=== PATIENT | male | born 1990 | race Caucasian/White ===

== ENCOUNTER 2019-10-08 12:25 | Inpatient (IN) ==
[2019-10-08] MEDS ORDERED: IOPAMIDOL 100 ML BOTTLE IV ONE (12:26)
[2019-10-08] MEDS ORDERED: ONDANSETRON 4 MG/2 ML VIAL IV ONE (12:39)
[2019-10-08] MEDS ORDERED: LACTATED RINGERS 1,000 ML IV SCH (13:00)
[2019-10-08] MEDS ORDERED: LACTATED RINGERS 1,000 ML IV ONE (13:01)
[2019-10-08] MEDS: HYDROmorphone 0.5 MG/0.5 ML SYRINGE IV PRN ×7 (13:02→23:30)
[2019-10-08] MEDS ORDERED: ACETAMINOPHEN 650 MG/65 ML BOTTLE IV ONE (13:04)
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
--- NOTE | 2019-10-08 13:15 | XRay Report ---
INDICATION: abd pain TECHNIQUE: Supine and upright abdomen. COMPARISON: None FINDINGS:Bowel gas pattern is unremarkable. No dilated gas-filled small bowel. No evidence for mechanical small bowel obstruction. There is no pneumoperitoneum. No biliary or portal venous gas. No pneumatosis. No focal abnormality IMPRESSION: Negative Interpreted and Authenticated by: Isaak Chen 10/08/19
[2019-10-08 13:50] LABS: Basophils # (Auto) 0.07 K/mcL (0.00-0.30); Basophils % (Auto) 0.4 % (0.0-2.0); Eosinophils # (Auto) 0 K/mcL (0.00-0.70); Eosinophils % (Auto) 0 % (0.0-7.0); Granulocytes % (Auto) 77.9 % (38.0-78.0); Hematocrit 44.9 % (40.1-51.0); Hemoglobin 15.6 g/dL (13.7-17.5); Lymphocytes # (Auto) 2.26 K/mcL (1.50-4.80); Lymphocytes % (Auto) 13.5 % (15.5-49.0); Mean Cell Volume 91.8 fL (80.0-100.0); Mean Corpuscular HGB Conc 34.7 g/dL (31.0-36.0); Mean Platelet Volume 10.2 fL (7.4-10.4); Monocytes # (Auto) 1.38 K/mcL (0.10-0.90); Monocytes % (Auto) 8.2 % (1.0-12.0); Platelet Count 340 K/mcL (140-440); RBC 4.89 M/mcL (4.63-6.08); Red Cell Distribution Width 12.4 % (11.5-14.5); WBC 16.8 K/mcL (4.50-11.00)
[2019-10-08 14:22] LABS: ALT/SGPT 58 U/l (0-40); AST/SGOT 60 U/l (0-37); Albumin/Globulin Ratio 1.5 (1.0-2.3); Alkaline Phosphatase 89 U/L (39-117); Bilirubin,Total 0.4 mg/dL (0.0-1.0); Blood Urea Nitrogen 12 mg/dl (6-20); Calcium 10.8 mg/dl (8.6-10.4); Carbon Dioxide 24 mmol/L (22-30); Chloride 96 mmol/L (96-108); Globulin 3.3 gm/dL (2.2-3.7); Glomerular Filtration Rate 103; Glucose 124 mg/dL (70-105)
[2019-10-08] MEDS ORDERED: KETOROLAC 30 MG/ML VIAL IV ONE (14:49)
--- NOTE | 2019-10-08 15:07 | Cat Scan Report ---
INDICATION: abd pain COMPARISON: Plain film examination dated 10/08/2019 TECHNIQUE: Axial images were obtained through the abdomen and pelvis. Sagittally and coronally reformatted images. 80 mL Isovue 370 injected intravenously. Oral contrast material was not administered FINDINGS: Lung bases:Negative. No pulmonary parenchymal nodule. No pleural fluid or pericardial fluid Liver:Low density liver consistent with hepatic steatosis. There is no hepatic mass. Liver contour is smooth. Gallbladder, bilary:No calcified gallstones. No gallbladder wall thickening. No dilated intra or extrahepatic bile ducts. Spleen:No splenomegaly. Normal enhancement of splenic and portal veins. Pancreas:Acute interstitial edematous pancreatitis. The pancreas is enlarged with peripancreatic inflammatory change. There is minimal retroperitoneal and free intraperitoneal fluid in the pelvis. There is no pseudocyst. No pancreatic necrosis or abscess. Adrenal glands:Negative Kidneys, ureters, bladder:No solid or cystic renal mass. No hydronephrosis. No obstructing calculi. There is no hydroureter. No ureteral stone No bladder calculi or detectable mass Gastrointestinal:No detectable colonic mass. There is no diverticulitis. Small bowel is negative. No mechanical small bowel obstruction. Stomach and duodenum are unremarkable Appendix: The appendix is negative Vascular:Negative abdominal aorta. Superior mesenteric artery and celiac trunk are normal. Normal opacification of the inferior mesenteric artery Lymphatic:No retroperitoneal or mesenteric adenopathy Mesentery, peritoneum: No free intraperitoneal fluid. No mesenteric or retroperitoneal mass. Reproductive:Prostate is not significantly enlarged Musculoskeletal:No lumbar compression fractures. Sacrum and pelvis are negative. No hip fracture. IMPRESSION: 1. Acute interstitial edematous pancreatitis. No pancreatic necrosis or abscess 2. Peripancreatic inflammatory change. No pseudocyst. There is a small amount of free fluid in the pelvic cul-de-sac 3. Hepatic steatosis The exam was performed using radiation dose optimization techniques including, but not limited to, automated exposure control, adjustment of the mA and/or kV according to patient size and use of iterative reconstruction technique. Interpreted and Authenticated by: Isaak Chen 10/08/19
[2019-10-08 15:29] LABS: Appearance,Urine CLEAR; Bacteria,Urine 0 /hpf (0); Bilirubin,Urine NEG (NEG); Color,Urine YELLOW; Culture Indicated,Urine YES; Glucose,Urine (UA) NEGATIVE (NEG); Ketones,Urine 20 mg/dL (NEG); Leukocyte Esterase,Urine 25 /uL (NEG); Mucus,Urine MANY /hpf (0); Nitrate,Urine NEG (NEG); Protein,Urine 100 mg/dL (NEG); Specific Gravity,Urine 1.034 (1.000-1.035); Urine Blood NEG mg/dL (<0.03); Urine Hyaline Cast 3 /lpf (0-2); Urine RBC 1 /hpf (0-1); Urine Squamous Epithelial Cell < 1 /hpf (0-4); Urine WBC 17 /hpf (0-4); Urobilinogen,Urine NEG (NEG)
[2019-10-08] MEDS ORDERED: 0.9 % SODIUM CHLORIDE 1,000 ML IV SCH ×2 (16:00→18:00)
[2019-10-08] MEDS ORDERED: 0.9 % SODIUM CHLORIDE 1,000 ML IV ONE ×2 (16:33→16:35)
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
[2019-10-08] MEDS ORDERED: BISACODYL 10 MG SUPP.RECT PR PRN (17:49)
[2019-10-08] MEDS ORDERED: POLYETHYLENE GLYCOL 3350 17 GM PACKET PO PRN (17:49)
[2019-10-08] MEDS ORDERED: ONDANSETRON 4 MG ODT TABLET SL PRN (17:49)
[2019-10-08] MEDS ORDERED: hydrALAZINE 20 MG/ML VIAL IV PRN (17:49)
[2019-10-08] MEDS ORDERED: POTASSIUM CHLORIDE 40 MEQ in DEXTROSE 5% IN WATER 500 ML IV PRN (17:49)
[2019-10-08] MEDS ORDERED: ACETAMINOPHEN 325 MG TABLET PO PRN (17:49)
[2019-10-08] MEDS ORDERED: MELATONIN 3 MG TABLET PO PRN (17:49)
[2019-10-08] MEDS ORDERED: MAGNESIUM SULFATE 2 GM/50 ML BAG IV PRN (17:49)
[2019-10-08] MEDS: 0.9 % SODIUM CHLORIDE 1,000 ML IV SCH ×2 (18:29→19:40)
[2019-10-08] MEDS: ONDANSETRON 4 MG/2 ML VIAL IV PRN (19:41)
[2019-10-08] MEDS: DOCUSATE SODIUM 100 MG CAPSULE PO SCH (21:03)
[2019-10-08] MEDS: HEPARIN 5,000 UNIT/ML VIAL SQ SCH (21:03)
[2019-10-08] MEDS ORDERED: ACETAMINOPHEN 650 MG/65 ML BOTTLE IV PRN (22:10)
[2019-10-08] MEDS: 0.9 % SODIUM CHLORIDE 10 ML SYRINGE IV SCH (22:12)
[2019-10-09] MEDS: 0.9 % SODIUM CHLORIDE 1,000 ML IV SCH ×4 (00:44→20:27)
[2019-10-09] MEDS: HYDROmorphone 0.5 MG/0.5 ML SYRINGE IV PRN ×6 (00:49→07:46)
[2019-10-09] MEDS: 0.9 % SODIUM CHLORIDE 10 ML SYRINGE IV SCH ×4 (03:50→20:15)
[2019-10-09] MEDS ORDERED: ACETAMINOPHEN 1,000 MG/100 ML BOTTLE IV ONE (05:10)
[2019-10-09 06:25] LABS: Hemoglobin 12.6 g/dL (13.7-17.5); Mean Cell Volume 97.2 fL (80.0-100.0); Mean Corpuscular HGB Conc 33.2 g/dL (31.0-36.0); Mean Platelet Volume 10.2 fL (7.4-10.4); Platelet Count 214 K/mcL (140-440); RBC 3.91 M/mcL (4.63-6.08); WBC 11.5 K/mcL (4.50-11.00)
[2019-10-09 06:52] LABS: ALT/SGPT 31 U/l (0-40); AST/SGOT 39 U/l (0-37); Albumin 3.7 gm/dL (3.2-5.2); Albumin/Globulin Ratio 1.7 (1.0-2.3); Alkaline Phosphatase 59 U/L (39-117); Bilirubin,Direct < 0.2 mg/dL (0.0-0.3); Bilirubin,Total 0.4 mg/dL (0.0-1.0); Blood Urea Nitrogen 11 mg/dl (6-20); C-Reactive Protein 7.5 mg/dl (0.0-0.8); Calcium 7.8 mg/dl (8.6-10.4); Carbon Dioxide 22 mmol/L (22-30); Chloride 105 mmol/L (96-108); Globulin 2.2 gm/dL (2.2-3.7); Glomerular Filtration Rate 122; Glucose 86 mg/dL (70-105); Lactate Dehydrogenase 224 U/L (94-250); Triglycerides 130 mg/dl (<150); Uric Acid 6.3 mg/dL (2.5-8.0)
[2019-10-09 06:54] LABS: Phosphorous 2.3 mg/dL (2.7-4.5)
[2019-10-09 07:05] LABS: Band Neutrophils % 12 % (0-10); Eosinophils % (Manual) 2 % (0-7); Lymphocytes % 4 % (15-49); Monocytes % (Manual) 5 % (1-12); Platelet Estimate NORMAL (NORMAL); RBC Morphology NORMAL (NORMAL); Reactive Lymphocytes 3 % (0-2); Segmented Neutrophils % 74 % (38-78)
[2019-10-09] MEDS: THIAMINE 100 MG in 0.9 % SODIUM CHLORIDE 50 ML IV SCH (08:08)
[2019-10-09] MEDS: DOCUSATE SODIUM 100 MG CAPSULE PO SCH ×2 (08:17→20:15)
[2019-10-09] MEDS: HEPARIN 5,000 UNIT/ML VIAL SQ SCH ×2 (08:17→20:27)
[2019-10-09] MEDS: HYDROmorphone 1 MG/ML SYRINGE IV PRN ×7 (09:06→23:48)
[2019-10-09] MEDS: ONDANSETRON 4 MG/2 ML VIAL IV PRN (09:14)
--- NOTE | 2019-10-09 09:58 | Internal Med Progress Note ---
SUBJECTIVE Subjective Patient information: Note initiated : 10/09/19 at 9:55 am Service Date, if different from initiated Date: [] Patient: Andrea Cleaning a 29 y/o M admitted on 10/08/19 for Abdominal Pain . History of present illness: Mr. Cleaning is a 29 year old M who works at the [employer] without any significant past medical history presents to the ER with severe epigastric dull pain 8 out of 10-10 out of 10 that started this morning. Describes as continuous radiating to the back associated nausea and multiple episodes of vomiting. Denies associated fever. He had similar episodes in the last year at least twice for which he did not seek medical attention. He drinks usually beer but drank fifth of hard alcohol after work couple days ago. Initial work-up in the ER was consistent with acute severe pancreatitis with white count over 20,[address] evidence of hemorrhage necrosis or abscess. Patient was started on crystalloid/pain medications and antinausea medication. Hospital service was consulted. At the time of evaluation patient is fairly anxious and nervous pain 7 out of 10 despite opioids. He was able to answer most the question and endorse review of systems and history as above. He denies associated diarrhea, bloody stool 10/08-continue conservative management and requiring IV opioids. Pain 7 out of 10. Keeping n.p.o. On crystalloids. White count downtrending however febrile at 101.5. Continue serial CRP/lipase. Start enteral feed via Dobbhoff in 24 hours if downtrending inflammatory markers. Constitutional Vitals: Vital Signs Temp Pulse Resp BP Pulse Ox 98.9 F 90 16 131/80 93 10/09/19 07:00 10/09/19 07:00 10/09/19 07:00 10/09/19 07:00 10/09/19 07:00 Period Temp Pulse Resp BP Sys/Alexandra Pulse Ox Last 24 Hr 97.2 F-101.3 F 55-113 16-21 114-158/71-99 93-100 Intake and Output 10/08/19 10/09/19 10/09/19 21:59 05:59 13:59 Intake Total 3548 2065 Output Total 250 300 150 Balance 3298 1765 -150 Weight 85.82 kg Alert oriented Nonlabored breathing Anxious Tender abdomen Intake & Output: Intake & Output 07/10/09/19 10/09/19 21:59 05:59 13:59 Intake Total 3547 2064 Output Total 250 300 150 Balance 3298 1765 -150 Weight 85.82 kg Intake: IV 3547 2064 Sodium Chloride 0.9% 1,000 ml @ 2483 2000 200 mls/hr IV .Q5H [facility] Rx#: [id number] OFIRMEV 1,000 mg In 100 ml @ 0 65 mls/hr IV .STK-MED ONE Rx#: [id number] Lactated Ringers 1,000 ml @ 1000 Wide Open IV [facility] Rx#: [id number] Output: Void Amount 250 300 150 Other: Urine Appearance Clear Urine Color Dark Yellow Dark Yellow Dark Yellow Urine Odor Normal Normal OBJ DATA Labs CBC & Chem 7: 10/09/19 05:20 10/09/19 05:20 Labs: Abnormal Lab Results 10/09/19 10/09/19 10/08/19 05:20 05:20 14:16 WBC 11.5 H RBC 3.91 L Hgb 12.6 L Hct 38.0 L Lymph % (Auto) Gran # [place] # (Auto) Band Neutrophils % 12 H Lymphocytes % 4 L Reactive Lymphocytes 3 H Anion Gap Glucose Calcium 7.8 L Phosphorus 2.3 L Magnesium 1.3 L AST 39 H ALT C-Reactive Protein 7.5 H Lipase Urine Protein 100 A Urine Ketones 20 A Ur Leukocyte Esterase 25 A Urine WBC 17 H Hyaline Casts 3 H Urine Mucus Many A 10/08/19 10/08/19 10/08/19 12:50 12:50 12:50 WBC 16.8 H RBC Hgb Hct Lymph % (Auto) 13.5 L Gran # 13.[address] [place] # (Auto) 1.38 H Band Neutrophils % Lymphocytes % Reactive Lymphocytes Anion Gap 24.0 H Glucose 124 H Calcium 10.8 H Phosphorus Magnesium AST 60 H ALT 58 H C-Reactive Protein 1.6 H Lipase 1146 H Urine Protein Urine Ketones Ur Leukocyte Esterase Urine WBC Hyaline Casts Urine Mucus Meds: Medications Acetaminophen (Tylenol) 650 mg PO Q4-6HP PRN; Protocol PRN Reason: Per Pain Protocol/Fever > 101 Bisacodyl (Dulcolax) 10 mg [place] Q2-3DAYS PRN PRN Reason: Constipation Docusate Sodium (Colace) 100 mg PO BID [facility] Last Admin: 10/09/19 08:17 Dose: 100 mg Documented by: Heparin Sodium (Porcine) (Heparin) 5,000 unit SQ Q12 [facility] Last Admin: 10/09/19 08:17 Dose: 5,000 unit Documented by: Hydralazine HCl (Apresoline) 10 mg IV Q4-6HP PRN PRN Reason: Hypertension Hydromorphone HCl (Dilaudid) 0.25 - 1 mg IV Q1HP PRN; Protocol PRN Reason: Per Pain Protocol Last Admin: 10/09/19 09:06 Dose: 1 mg Documented by: Potassium Chloride 40 meq/ (Dextrose) 520 mls @ 130 mls/hr IV UD PRN PRN Reason: K+ = or < 3.5 Magnesium Sulfate (Magnesium Sulfate) 2 gm in 50 mls @ 50 mls/hr IV UD PRN PRN Reason: MG = or < 1.7 Last Admin: 10/09/19 09:08 Dose: 50 mls/hr Documented by: Thiamine HCl 100 mg/ Sodium (Chloride) 51 mls @ 50 mls/hr IV DAILY [facility] Stop: 10/11/19 10:02 Last Admin: 10/09/19 08:08 Dose: 50 mls/hr Documented by: Sodium Chloride (Sodium Chloride 0.9%) 1,000 mls @ 0 mls/hr IV BOLUS [facility] Last Infusion: 10/08/19 19:40 Dose: Infused Documented by: Acetaminophen (Ofirmev) 650 mg in 65 mls @ 130 mls/hr IV Q6HP PRN; Protocol PRN Reason: PAIN/FEVER > 101 Melatonin (Melatonin 3mg Tablet) 3 mg PO HSP PRN PRN Reason: Insomnia Ondansetron HCl (Zofran Odt) 4 mg SL Q4-6HP PRN; Protocol PRN Reason: Nausea And Vomiting Ondansetron HCl (Zofran) 4 mg IV Q4-6HP PRN; Protocol PRN Reason: Nausea And Vomiting Last Admin: 10/09/19 09:14 Dose: 4 mg Documented by: Polyethylene Glycol (Miralax) 17 gm PO DAILYP PRN PRN Reason: Constipation Sodium Chloride (Saline Flush) 10 ml IV Q8 [facility] Last Admin: 10/09/19 05:57 Dose: Not Given Documented by: A/P Narrative A/P Narrative: * Acute pancreatitis-confirmed on CT. Continuing conservative management crystalloid/antiemetics/analgesics. Counseled again alcohol cessation. * Abdominal pain continue management on as needed IV opioids * history of alcohol dependence monitor for withdrawal symptoms * Tobacco dependence offered nicotine patch * Full code Plan * Serial CRP * Conservative management/crystalloid/antiemetics/analgesics Time Spent With Patient Time: Total time spent is greater than 50% in coordination of care (as documented) at patient's floor/unit and/or counseling patient: QUALITY Stroke Symptom Onset Unknown: No VTE Deep Vein Thrombosis/Pulmonary Embolism Present on Admission: No
[2019-10-10] MEDS: 0.9 % SODIUM CHLORIDE 1,000 ML IV SCH ×3 (03:18→12:04)
[2019-10-10] MEDS: HYDROmorphone 1 MG/ML SYRINGE IV PRN ×9 (03:19→23:46)
[2019-10-10] MEDS: 0.9 % SODIUM CHLORIDE 10 ML SYRINGE IV SCH ×3 (05:29→21:09)
[2019-10-10 06:35] LABS: Hematocrit 37.2 % (40.1-51.0); Hemoglobin 12.5 g/dL (13.7-17.5); Mean Cell Volume 93.7 fL (80.0-100.0); Mean Corpuscular HGB Conc 33.6 g/dL (31.0-36.0); Mean Platelet Volume 10.1 fL (7.4-10.4); Platelet Count 187 K/mcL (140-440); RBC 3.97 M/mcL (4.63-6.08); Red Cell Distribution Width 12.1 % (11.5-14.5); WBC 9.4 K/mcL (4.50-11.00)
[2019-10-10 07:14] LABS: ALT/SGPT 24 U/l (0-40); AST/SGOT 33 U/l (0-37); Albumin 3.3 gm/dL (3.2-5.2); Albumin/Globulin Ratio 1.3 (1.0-2.3); Alkaline Phosphatase 56 U/L (39-117); Bilirubin,Direct < 0.2 mg/dL (0.0-0.3); Bilirubin,Total 0.3 mg/dL (0.0-1.0); Blood Urea Nitrogen 5 mg/dl (6-20); Carbon Dioxide 25 mmol/L (22-30); Chloride 102 mmol/L (96-108); Globulin 2.6 gm/dL (2.2-3.7); Glomerular Filtration Rate 129; Glucose 92 mg/dL (70-105); Lactate Dehydrogenase 263 U/L (94-250); Phosphorous 1.5 mg/dL (2.7-4.5); Triglycerides 140 mg/dl (<150); Uric Acid 5.7 mg/dL (2.5-8.0)
[2019-10-10 07:17] LABS: C-Reactive Protein 19.3 mg/dl (0.0-0.8)
[2019-10-10 08:07] LABS: Band Neutrophils % 1 % (0-10); Eosinophils % (Manual) 5 % (0-7); Lymphocytes % 14 % (15-49); Monocytes % (Manual) 7 % (1-12); Platelet Estimate NORMAL (NORMAL); RBC Morphology NORMAL (NORMAL); Segmented Neutrophils % 73 % (38-78)
[2019-10-10] MEDS: DOCUSATE SODIUM 100 MG CAPSULE PO SCH ×2 (08:55→20:45)
[2019-10-10] MEDS: HEPARIN 5,000 UNIT/ML VIAL SQ SCH ×2 (08:56→20:45)
[2019-10-10] MEDS: THIAMINE 100 MG in 0.9 % SODIUM CHLORIDE 50 ML IV SCH (08:56)
--- NOTE | 2019-10-10 09:15 | Internal Med Progress Note ---
SUBJECTIVE Subjective Patient information: Note initiated : 10/10/19 at 9:12 am Service Date, if different from initiated Date: [] Patient: Andrea Cleaning a 29 y/o M admitted on 10/08/19 for Abdominal Pain . Chief Complaint: [] Mr. Cleaning is a 29 year old M who works at the [email or web address] without any significant past medical history presents to the ER with severe epigastric dull pain 8 out of 10-10 out of 10 that started this morning. Describes as continuous radiating to the back associated nausea and multiple episodes of vomiting. Denies associated fever. He had similar episodes in the last year at least twice for which he did not seek medical attention. He drinks usually beer but drank fifth of hard alcohol after work couple days ago. Initial work-up in the ER was consistent with acute severe pancreatitis with white count over 20,[address] evidence of hemorrhage necrosis or abscess. Patient was started on crystalloid/pain medications and antinausea medication. Hospital service was consulted. At the time of evaluation patient is fairly anxious and nervous pain 7 out of 10 despite opioids. He was able to answer most the question and endorse review of systems and history as above. He denies associated diarrhea, bloody stool 10/08-continue conservative management and requiring IV opioids. Pain 7 out of 10. Keeping n.p.o. On crystalloids. White count downtrending however febrile at 101.5. Continue serial CRP/lipase. Start enteral feed via Dobbhoff in 24 hours if downtrending inflammatory markers. 10/09-patient doing a lot better. Pain good control. Feels hungry. Improved labs and hemodynamics. Lipase downtrending. CRP up at 19.3 however downtre nding LFTs/anion gap normalized. Start oral clears. Alcohol cessation counseling performed. No overnight fever chills, T-max 99.9 Constitutional Vitals: Vital Signs Temp Pulse Resp BP Pulse Ox 98.7 F 73 18 136/90 95 10/10/19 07:00 10/10/19 07:00 10/10/19 07:00 10/10/19 07:00 10/10/19 07:00 Period Temp Pulse Resp BP Sys/Alexandra Pulse Ox Last 24 Hr 98.5 F-99.7 F 73-101 16-18 131-141/77-91 93-96 Intake and Output 10/09/19 10/10/19 10/10/19 21:59 05:59 13:59 Intake Total 0 1000 Output Total 1475 1600 Balance -1475 -600 Weight 88.042 kg alert oriented Nonlabored breathing Nondistended abdomen No flank bruising No lymphedema Intake & Output: Intake & Output 10/09/19 10/10/19 10/10/19 21:59 05:59 13:59 Intake Total 0 1000 Output Total 1475 1600 Balance -1475 -600 Weight 88.042 kg Intake: IV 1000 Sodium Chloride 0.9% 1,000 ml @ 1000 150 mls/hr IV .Q6H40M [facility] Rx#: [id number] Oral 0 Output: Void Amount 1475 1600 Other: Urine Appearance Clear Urine Color Dark Yellow Bright Yellow Urine Odor Normal Normal OBJ DATA Labs CBC & Chem 7: 10/10/19 05:42 10/10/19 05:42 Labs: Abnormal Lab Results 10/10/19 10/10/19 10/10/19 05:42 05:42 05:42 WBC RBC 3.97 L Hgb 12.5 L Hct 37.2 L Lymph % (Auto) Gran # [place] # (Auto) Band Neutrophils % Lymphocytes % 14 L Reactive Lymphocytes Anion Gap BUN 5 L Glucose Calcium 8.0 L Phosphorus 1.5 L Magnesium AST ALT Lactate Dehydrogenase 263 H C-Reactive Protein 19.3 H Lipase 224 H Urine Protein Urine Ketones Ur Leukocyte Esterase Urine WBC Hyaline Casts Urine Mucus 10/09/19 10/09/19 10/08/19 05:20 05:20 14:16 WBC 11.5 H RBC 3.91 L Hgb 12.6 L Hct 38.0 L Lymph % (Auto) Gran # [place] # (Auto) Band Neutrophils % 12 H Lymphocytes % 4 L Reactive Lymphocytes 3 H Anion Gap BUN Glucose Calcium 7.8 L Phosphorus 2.3 L Magnesium 1.3 L AST 39 H ALT Lactate Dehydrogenase C-Reactive Protein 7.5 H Lipase Urine Protein 100 A Urine Ketones 20 A Ur Leukocyte Esterase 25 A Urine WBC 17 H Hyaline Casts 3 H Urine Mucus Many A 10/08/19 10/08/19 10/08/19 12:50 12:50 12:50 WBC 16.8 H RBC Hgb Hct Lymph % (Auto) 13.5 L Gran # 13.08 H [place] # (Auto) 1.38 H Band Neutrophils % Lymphocytes % Reactive Lymphocytes Anion Gap 24.0 H BUN Glucose 124 H Calcium 10.8 H Phosphorus Magnesium AST 60 H ALT 58 H Lactate Dehydrogenase C-Reactive Protein 1.6 H Lipase 1146 H Urine Protein Urine Ketones Ur Leukocyte Esterase Urine WBC Hyaline Casts Urine Mucus Meds: Medications Acetaminophen (Tylenol) 650 mg PO Q4-6HP PRN; Protocol PRN Reason: Per Pain Protocol/Fever > 101 Bisacodyl (Dulcolax) 10 mg [place] Q2-3DAYS PRN PRN Reason: Constipation Docusate Sodium (Colace) 100 mg PO BID [facility] Last Admin: 10/10/19 08:55 Dose: 100 mg Documented by: Heparin Sodium (Porcine) (Heparin) 5,000 unit SQ Q12 [facility] Last Admin: 10/10/19 08:56 Dose: 5,000 unit Documented by: Hydralazine HCl (Apresoline) 10 mg IV Q4-6HP PRN PRN Reason: Hypertension Hydromorphone HCl (Dilaudid) 0.25 - 1 mg IV Q1HP PRN; Protocol PRN Reason: Per Pain Protocol Last Admin: 10/10/19 09:10 Dose: 1 mg Documented by: Potassium Chloride 40 meq/ (Dextrose) 520 mls @ 130 mls/hr IV UD PRN PRN Reason: K+ = or < 3.5 Magnesium Sulfate (Magnesium Sulfate) 2 gm in 50 mls @ 50 mls/hr IV UD PRN PRN Reason: MG = or < 1.7 Last Infusion: 10/09/19 10:15 Dose: Infused Documented by: Thiamine HCl 100 mg/ Sodium (Chloride) 51 mls @ 50 mls/hr IV DAILY [facility] Stop: 10/11/19 10:02 Last Admin: 10/10/19 08:56 Dose: 50 mls/hr Documented by: Sodium Chloride (Sodium Chloride 0.9%) 1,000 mls @ 0 mls/hr IV BOLUS [facility] Last Admin: 10/09/19 20:15 Dose: Not Given Documented by: Acetaminophen (Ofirmev) 650 mg in 65 mls @ 130 mls/hr IV Q6HP PRN; Protocol PRN Reason: PAIN/FEVER > 101 Sodium Chloride (Sodium Chloride 0.9%) 1,000 mls @ 150 mls/hr IV .Q6H40M [facility] Stop: 10/10/19 16:14 Last Admin: 10/10/19 03:18 Dose: 150 mls/hr Documented by: Melatonin (Melatonin 3mg Tablet) 3 mg PO HSP PRN PRN Reason: Insomnia Ondansetron HCl (Zofran Odt) 4 mg SL Q4-6HP PRN; Protocol PRN Reason: Nausea And Vomiting Ondansetron HCl (Zofran) 4 mg IV Q4-6HP PRN; Protocol PRN Reason: Nausea And Vomiting Last Admin: 10/09/19 09:14 Dose: 4 mg Documented by: Polyethylene Glycol (Miralax) 17 gm PO DAILYP PRN PRN Reason: Constipation Sodium Chloride (Saline Flush) 10 ml IV Q8 [facility] Last Admin: 10/10/19 05:29 Dose: Not Given Documented by: A/P Narrative A/P Narrative: * Acute alcoholic pancreatitis-clinically improving with aggressive management per guidelines. Continue supportive management. Start p.o. clears. * Abdominal pain continue management on as needed IV opioids * history of alcohol dependence - no evidence of withdrawals. Cessation counseling performed. * Tobacco dependence offered nicotine patch * Full code Plan * Start oral clears * Continue crystalloids * Pain management as indicated Time Spent With Patient Time: Total time spent is greater than 50% in coordination of care (as canelo henson) at patient's floor/unit and/or counseling patient: QUALITY Stroke Symptom Onset Unknown: No VTE Deep Vein Thrombosis/Pulmonary Embolism Present on Admission: No
[2019-10-10] MEDS ORDERED: POTASSIUM PHOSPHATE 40 MEQ in DEXTROSE 5% IN WATER 500 ML IV ONE (09:33)
[2019-10-10] MEDS: NICOTINE 21 MG PATCH TOPICAL SCH (10:53)
--- NOTE | 2019-10-10 14:33 | Internal Med Progress Note ---
SUBJECTIVE Subjective Patient information: Note initiated : 10/10/19 at 2:28 pm Service Date, if different from initiated Date: [] Patient: Andrea Cleaning 29 y/o M admitted on 10/08/19 for Abdominal Pain . Chief Complaint: [] Interval history: Mr. Cleaning is a 29 year old M who works at the [employer] without any significant past medical history presents to the ER with severe epigastric dull pain 8 out of 10-10 out of 10 that started this morning. Describes as continuous radiating to the back associated nausea and multiple episodes of vomiting. Denies associated fever. He had similar episodes in the last year at least twice for which he did not seek medical attention. He drinks usually beer but drank fifth of hard alcohol after work couple days ago. Initial work-up in the ER was consistent with acute severe pancreatitis with wh ite count over 20,[address] evidence of hemorrhage necrosis or abscess. Patient was started on crystalloid/pain medications and antinausea medication. Hospital service was consulted. At the time of evaluation patient is fairly anxious and nervous pain 7 out of 10 despite opioids. He was able to answer most the question and endorse review of systems and history as above. He denies associated diarrhea, bloody stool 10/08-continue conservative management and requiring IV opioids. Pain 7 out of 10. Keeping n.p.o. On crystalloids. White count downtrending however febrile at 101.5. Continue serial CRP/lipase. Start enteral feed via [place]obb[place] in 24 hours if downtrending inflammatory markers. 10/09-patient doing a lot better. Pain good control. Feels hungry. Improved labs and hemodynamics. Lipase downtrending. CRP up at 19.3 however downtrending LFTs/anion gap normalized. Start oral clears. Alcohol cessation counseling performed. No overnight fever chills, T-max 99.9 10/10 Constitutional Vitals: Vital Signs Temp Pulse Resp BP Pulse Ox 98.1 F 75 18 149/88 97 10/10/19 13:35 10/10/19 13:35 10/10/19 13:35 10/10/19 13:40 10/10/19 13:35 Period Temp Pulse Resp BP Sys/Alexandra Pulse Ox Last 24 Hr 98.1 F-99.7 F 73-101 16-18 133-153/84-101 93-97 Intake and Output 10/10/19 10/10/19 10/10/19 05:59 13:59 21:59 Intake Total 1000 1531 Output Total 1600 1205 Balance -600 326 Weight 88.042 kg Intake & Output: Intake & Output 10/10/19 10/10/19 10/10/19 05:59 13:59 21:59 Intake Total 1000 1531 Output Total 1600 1205 Balance -600 326 Weight 88.042 kg Intake: IV 1000 1051 Sodium Chloride 0.9% 1,000 ml @ 1000 1000 150 mls/hr IV .Q6H40M [facility] Rx#: [id number] Vitamin B1 100 mg In Sodium 51 Chloride 0.9% 50 ml @ 50 mls/hr IV DAILY [facility] Rx#:[id number] Oral 480 Output: Void Amount 1600 1205 Other: Meal Lunch Percent of Meal Consumed 50% Feeding Ability Independent Urine Appearance Clear Clear Urine Color Bright Yellow Bright Yellow Urine Odor Normal Normal Stool Consistency Normal for Patient # Bowel Movements 1 Exam: General: Alert, Awake, No acute Distress Eyes/N/T: EOMI, Head/Neck: neck supple, CV: RRR, No murmurs, Pulm: Clear b/l, no wheezing/rhonchi/rales Abd: soft, TTP epi, +BS x4 Ext: no clubbing/cyanosis/edema Neuro: Alert, no focal deficits, moves all extremities, Skin: warm/dry OBJ DATA Labs CBC & Chem 7: 10/10/19 05:42 10/10/19 05:42 Labs: Abnormal Lab Results 10/10/19 10/10/19 10/10/19 05:42 05:42 05:42 WBC RBC 3.97 L Hgb 12.5 L Hct 37.2 L Lymph % (Auto) Gran # [place] # (Auto) Band Neutrophils % Lymphocytes % 14 L Reactive Lymphocytes Anion Gap BUN 5 L Glucose Calcium 8.0 L Phosphorus 1.5 L Magnesium AST ALT Lactate Dehydrogenase 263 H C-Reactive Protein 19.3 H Lipase 224 H Urine Protein Urine Ketones Ur Leukocyte Esterase Urine WBC Hyaline Casts Urine Mucus 10/09/19 10/09/19 10/08/19 05:20 05:20 14:16 WBC 11.5 H RBC 3.91 L Hgb 12.6 L Hct 38.0 L Lymph % (Auto) Gran # [place] # (Auto) Band Neutrophils % 12 H Lymphocytes % 4 L Reactive Lymphocytes 3 H Anion Gap BUN Glucose Calcium 7.8 L Phosphorus 2.3 L Magnesium 1.3 L AST 39 H ALT Lactate Dehydrogenase C-Reactive Protein 7.5 H Lipase Urine Protein 100 A Urine Ketones 20 A Ur Leukocyte Esterase 25 A Urine WBC 17 H Hyaline Casts 3 H Urine Mucus Many A 10/08/19 10/08/19 10/08/19 12:50 12:50 12:50 WBC 16.8 H RBC Hgb Hct Lymph % (Auto) 13.5 L Gran # 13.08 H [place] # (Auto) 1.38 H Band Neutrophils % Lymphocytes % Reactive Lymphocytes Anion Gap 24.0 H BUN Glucose 124 H Calcium 10.8 H Phosphorus Magnesium AST 60 H ALT 58 H Lactate Dehydrogenase C-Reactive Protein 1.6 H Lipase 1146 H Urine Protein Urine Ketones Ur Leukocyte Esterase Urine WBC Hyaline Casts Urine Mucus Meds: Medications Acetaminophen (Tylenol) 650 mg PO Q4-6HP PRN; Protocol PRN Reason: Per Pain Protocol/Fever > 101 Bisacodyl (Dulcolax) 10 mg [place] Q2-3DAYS PRN PRN Reason: Constipation Docusate Sodium (Colace) 100 mg PO BID [facility] Last Admin: 10/10/19 08:55 Dose: 100 mg Documented by: Heparin Sodium (Porcine) (Heparin) 5,000 unit SQ Q12 [facility] Last Admin: 10/10/19 08:56 Dose: 5,000 unit Documented by: Hydralazine HCl (Apresoline) 10 mg IV Q4-6HP PRN PRN Reason: Hypertension Hydromorphone HCl (Dilaudid) 1 mg IV Q2HP PRN; Protocol PRN Reason: Per Pain Protocol Last Admin: 10/10/19 14:21 Dose: 1 mg Documented by: Potassium Chloride 40 meq/ (Dextrose) 520 mls @ 130 mls/hr IV UD PRN PRN Reason: K+ = or < 3.5 Magnesium Sulfate (Magnesium Sulfate) 2 gm in 50 mls @ 50 mls/hr IV UD PRN PRN Reason: MG = or < 1.7 Last Infusion: 10/09/19 10:15 Dose: Infused Documented by: Thiamine HCl 100 mg/ Sodium (Chloride) 51 mls @ 50 mls/hr IV DAILY [facility] Stop: 10/11/19 10:02 Last Infusion: 10/10/19 09:58 Dose: Infused Documented by: Acetaminophen (Ofirmev) 650 mg in 65 mls @ 130 mls/hr IV Q6HP PRN; Protocol PRN Reason: PAIN/FEVER > 101 Sodium Chloride (Sodium Chloride 0.9%) 1,000 mls @ 150 mls/hr IV .Q6H40M [facility] Stop: 10/10/19 16:14 Last Admin: 10/10/19 12:04 Dose: 150 mls/hr Documented by: Melatonin (Melatonin 3mg Tablet) 3 mg PO HSP PRN PRN Reason: Insomnia Nicotine (Nicoderm) 21 mg TOPICAL DAILY@1000 [facility] Last Admin: 10/10/19 10:53 Dose: 21 mg Documented by: Ondansetron HCl (Zofran Odt) 4 mg SL Q4-6HP PRN; Protocol PRN Reason: Nausea And Vomiting Ondansetron HCl (Zofran) 4 mg IV Q4-6HP PRN; Protocol PRN Reason: Nausea And Vomiting Last Admin: 10/09/19 09:14 Dose: 4 mg Documented by: Polyethylene Glycol (Miralax) 17 gm PO DAILYP PRN PRN Reason: Constipation Sodium Chloride (Saline Flush) 10 ml IV Q8 [facility] Last Admin: 10/10/19 13:29 Dose: Not Given Documented by: A/P Narrative A/P Narrative: A: *Acute alcoholic pancreatitis: clinically improving -no GB pathology on CT imaging *ETOH dependence: -no evidence of withdrawals. Cessation counseling performed. *Tobacco dependence: offered nicotine patch Plan: -Start oral clears -Continue crystalloids -Pain management as indicated -Smoking cessation counseling -ppx: heparin Time Spent With Patient Time: Total time spent is greater than 50% in coordination of care (as documented) at patient's floor/unit and/or counseling patient: QUALITY Stroke Symptom Onset Unknown: No VTE Deep Vein Thrombosis/Pulmonary Embolism Present on Admission: No
[2019-10-11] MEDS: HYDROmorphone 1 MG/ML SYRINGE IV PRN ×2 (03:18→07:21)
[2019-10-11] MEDS: 0.9 % SODIUM CHLORIDE 10 ML SYRINGE IV SCH (03:20)
[2019-10-11 06:35] LABS: Hematocrit 37.1 % (40.1-51.0); Hemoglobin 12.8 g/dL (13.7-17.5); Mean Cell Volume 91.8 fL (80.0-100.0); Mean Corpuscular HGB Conc 34.5 g/dL (31.0-36.0); Mean Platelet Volume 10.2 fL (7.4-10.4); Platelet Count 207 K/mcL (140-440); RBC 4.04 M/mcL (4.63-6.08); Red Cell Distribution Width 11.9 % (11.5-14.5); WBC 9.7 K/mcL (4.50-11.00)
[2019-10-11 07:17] LABS: ALT/SGPT 22 U/l (0-40); AST/SGOT 27 U/l (0-37); Albumin 3.5 gm/dL (3.2-5.2); Albumin/Globulin Ratio 1.3 (1.0-2.3); Alkaline Phosphatase 60 U/L (39-117); Bilirubin,Direct < 0.2 mg/dL (0.0-0.3); Bilirubin,Total 0.3 mg/dL (0.0-1.0); Blood Urea Nitrogen 6 mg/dl (6-20); Calcium 8.9 mg/dl (8.6-10.4); Carbon Dioxide 27 mmol/L (22-30); Chloride 104 mmol/L (96-108); Globulin 2.7 gm/dL (2.2-3.7); Glomerular Filtration Rate 138; Glucose 92 mg/dL (70-105); Lactate Dehydrogenase 235 U/L (94-250); Triglycerides 119 mg/dl (<150); Uric Acid 4.8 mg/dL (2.5-8.0)
[2019-10-11 07:19] LABS: Phosphorous 2.6 mg/dL (2.7-4.5)
[2019-10-11 08:07] LABS: Band Neutrophils % 1 % (0-10); Eosinophils % (Manual) 7 % (0-7); Lymphocytes % 29 % (15-49); Monocytes % (Manual) 10 % (1-12); Platelet Estimate NORMAL (NORMAL); RBC Morphology NORMAL (NORMAL); Segmented Neutrophils % 53 % (38-78)
[2019-10-11] MEDS: DOCUSATE SODIUM 100 MG CAPSULE PO SCH (08:18)
--- NOTE | 2019-10-11 08:52 | Discharge Summary ---
Discharge Provider Provider Patient information: Note initiated : 10/11/19 at 8:48 am Service Date, if different from initiated Date: [] Patient: Andrea Cleaning 29 y/o M admitted on 10/08/19 for Abdominal Pain . Chief Complaint: [] Date of admission: 10/08/19 18:00 Discharge date: 10/11/19 Primary care physician: Dedra Aguilar DO Consults: 10/08/19 Consult to Physician [CONS] Stat Comment: Consulting Provider: Michael Hart Reason For Exam: Physician to Consult Discharge Meds Discharge Medications Home Medications albuterol sulfate 90 mcg/actuation aerosol inhaler 2 puff INHALATION Q6H PRN #18 g 05/15/19 [Rx Confirmed 10/08/19 Last Taken Unknown] buprenorphine 8 mg-naloxone 2 mg sublingual tablet 1 tab SUBLINGUAL TID #90 tab 10/07/19 [Rx Confirmed 10/08/19 Last Taken Unknown] COURSE Hospital Course Hospital course: Interval history: Mr. Cleaning is a 29 year old M who works at the [employer] without any significant past medical history presents to the ER with severe epigastric dull pain 8 out of 10-10 out of 10 that started this morning. Describes as continuous radiating to the back associated nausea and multiple episodes of vomiting. Denies associated fever. He had similar episodes in the last year at least twice for which he did not seek medical attention. He drinks usually beer but drank fifth of hard alcohol after work couple days ago. Initial work-up in the ER was consistent with acute severe pancreatitis with white count over 20,[address] evidence of hemorrhage necrosis or a bscess. Patient was started on crystalloid/pain medications and antinausea medication. Hospital service was consulted. At the time of evaluation patient is fairly anxious and nervous pain 7 out of 10 despite opioids. He was able to answer most the question and endorse review of systems and history as above. He denies associated diarrhea, bloody stool 10/08-continue conservative management and requiring IV opioids. Pain 7 out of 10. Keeping n.p.o. On crystalloids. White count downtrending however febrile at 101.5. Continue serial CRP/lipase. Start enteral feed via [place] in 24 hours if downtrending inflammatory markers. 10/09-patient doing a lot better. Pain good control. Feels hungry. Improved labs and hemodynamics. Lipase downtrending. CRP up at 19.3 however downtrending LFTs/anion gap normalized. Start oral clears. Alcohol cessation counseling performed. No overnight fever chills, T-max 99.9 10/10 No issues overnight. Patient feeling better. Advancing diet and then stable for discharge if tolerating. A: *Acute alcoholic pancreatitis: clinically improving -no GB pathology on CT imaging *ETOH dependence: -no evidence of withdrawals. Cessation counseling performed. *Tobacco dependence: offered nicotine patch Discharge diagnosis: Alcoholic pancreatitis alcohol abuse tobacco abuse Time Spent with Patient Time attestation: Total time spent providing and/or coordinating discharge services: Time spent: Greater than 30 minutes EXAM Constitutional Vitals: Temp Pulse Resp BP Pulse Ox 98.0 F 45 L 18 164/96 98 10/11/19 06:57 10/11/19 06:57 10/11/19 06:57 10/11/19 06:57 10/11/19 06:57 Discharge Data Data Completed and Pending Labs on day of discharge: Labs from last 24 hours 10/11/19 10/11/19 05:46 05:46 WBC 9.7 RBC 4.04 L Hgb 12.8 L Hct 37.1 L MCV 91.8 MCH 31.7 MCHC 34.5 RDW 11.9 Plt Count 207 MPV 10.2 Total Counted 100 Seg Neutrophils % 53 Band Neutrophils % 1 Lymphocytes % 29 Monocytes % (Manual) 10 Eosinophils % (Manual) 7 Platelet Estimate Normal RBC Morphology Normal Sodium 140 Potassium 4.0 Chloride 104 Carbon Dioxide 27 Anion Gap 9.0 BUN 6 Creatinine 0.6 L GFR Calculation 138 Glucose 92 Uric Acid 4.8 Calcium 8.9 Phosphorus 2.6 L Magnesium 2.0 Total Bilirubin 0.3 Direct Bilirubin < 0.2 GGT 37 AST 27 ALT 22 Alkaline Phosphatase 60 Lactate Dehydrogenase 235 Total Protein 6.2 Albumin 3.5 Globulin 2.7 Albumin/Globulin Ratio 1.3 Triglycerides 119 Preliminary micro results at discharge 10/09/19 05:27 Blood Culture - Preliminary Blood 10/09/19 05:20 Blood Culture - Preliminary Blood Discharge Plan Patient/Caregiver Discharge Instructions Activity: increase activity as tolerated Diet: Low Fat Prescriptions: Continued albuterol sulfate [ProAir HFA] 90 mcg/actuation HFA aerosol inhaler 2 puff INHALATION Q6H PRN (Reason: shortness of breath or wheezing) Qty: 18 RF: 3 buprenorphine-naloxone 8-2 mg tablet, sublingual 1 tab SUBLINGUAL TID Qty: 90 RF: 0 Follow Up Plan Follow up with: Dedra Aguilar DO [Primary Care Provider] - Patient Disposition: Home, Self-Care Prognosis: Fair Discharge Orders: Discharge Order (Routine); Ordered 10/11/19 Ordered By: Сергей Martinez [facility] Deep Vein Thrombosis/Pulmonary Embolism Present on Admission: No
[2019-10-11] MEDS: HEPARIN 5,000 UNIT/ML VIAL SQ SCH (09:21)
[2019-10-11] MEDS: NICOTINE 21 MG PATCH TOPICAL SCH (09:21)
[2019-10-11] MEDS: THIAMINE 100 MG in 0.9 % SODIUM CHLORIDE 50 ML IV SCH (09:21)
[2019-10-11] MEDS ORDERED: NICOTINE 21 MG PATCH TOPICAL SCH (10:00)
== END 2019-10-11 10:46 | disposition home or self-care (01) | DRG 440 ==
LOC: ED 12:25 → MEDSUR 18:00
PROVIDERS: ADMIT Internal Medicine; ATTEND Internal Medicine